=== PATIENT | female | born 1960 | race Caucasian/White ===

== ENCOUNTER → 2018-03-07 | Outpatient (REF) | payer BC ==
[~2018-03-07] MED LIST: ALPR-429 PO; AMO250 PO; FLUO40CA76 PO; HORMONE REPLACEMENT; LACT1CAP12; ONDA4TAB PO; PER PO
[2018-03-07 16:32] LABS: PLATELET COUNT, AUTOMATED 163 K/uL (150-450)
== END ==
PROVIDERS: ATTEND Nurse Practitioner Family
DX: R11.0 Nausea (principal)
CPT/HCPCS: 82040; 82247; 82310; 82374; 82435; 82565; 82947; 84075; 84132; 84155; 84295; 84450; 84460; 84520; 85025